=== PATIENT | male | born 1955 | race Caucasian/White ===

== ENCOUNTER 2020-02-25 10:04 | Emergency (ER) | payer MEDICARE, OTHER ==
--- NOTE | 2020-02-25 10:54 | EDM.PDOC ---
ED HPI GENERAL MEDICAL PROBLEM - General Chief Complaint: Genitourinary Problem Stated Complaint: ABD PAIN, ? BADDER INFECTION Time Seen by Provider: 02/25/20 10:39 Source of Information: Reports: Patient History Limitations: Reports: No Limitations - History of Present Illness INITIAL COMMENTS - FREE TEXT/NARRATIVE: Patient presents with dysuria that started 36 hours ago. He denies flank pain and has never had a UTI before but thinks he must have one now. He hasn't been drinking much water the last few days he says. - Related Data Allergies Allergy/AdvReac Type Severity Reaction Status Date / Time No Known Drug Allergies Allergy Other Verified 02/25/20 10:18 Home Meds: Home Meds . [No Known Home Meds] 06/22/19 [History] Past Medical History - Past Health History Medical/Surgical History: Denies Medical/Surgical History HEENT History: Reports: Impaired Vision - Infectious Disease History Infectious Disease History: Reports: Other (See Below) Other Infectious Disease History: Lyme disease Social & Family History - Family History Family Medical History: Noncontributory - Tobacco Use Smoking Status *Q: Never Smoker - Caffeine Use Caffeine Use: Reports: None - Recreational Drug Use Recreational Drug Use: No ED ROS GENERAL - Review of Systems Review Of Systems: See Below Constitutional: Denies: Fever, Chills, Malaise, Weakness HEENT: Reports: No Symptoms Respiratory: Denies: Shortness of Breath, Cough Cardiovascular: Denies: Chest Pain, Syncope Endocrine: Reports: No Symptoms GI/Abdominal: Denies: Abdominal Pain, Diarrhea, Vomiting : Reports: Dysuria, Frequency, Urgency, Other (No penile lesions or erythema) . Denies: Flank Pain, Hematuria, Incontinence Musculoskeletal: Reports: No Symptoms Skin: Denies: Cyanosis, Jaundice, Mottled, Pallor, Diaphoresis Neurological: Denies: Confusion, Dizziness, Seizure, Syncope, Trouble Speaking, Difficulty Walking Psychiatric: Denies: Agitation, Anxiety, Confusion ED EXAM, RENAL/ - Physical Exam Exam: See Below Exam Limited By: No Limitations General Appearance: Alert, WD/WN, No Apparent Distress Eye Exam: Bilateral Eye: EOMI, Normal Inspection, PERRL Ears: Normal External Exam, Hearing Grossly Normal Nose: Normal Inspection, No Blood Throat/Mouth: Normal Inspection, Normal Lips, Normal Voice, No Airway Compromise Head: Atraumatic, Normocephalic Neck: Normal Inspection, Full Range of Motion Respiratory/Chest: No Respiratory Distress, Lungs Clear, Normal Breath Sounds, No Accessory Muscle Use Cardiovascular: Regular Rate, Rhythm, No Murmur GI/Abdominal: Normal Bowel Sounds, Soft, Non-Tender, No Organomegaly, No Distention, No Abnormal Bruit Back Exam: Normal Inspection, Full Range of Motion. No: CVA Tenderness (L), CVA Tenderness (R) Extremities: Normal Inspection, Normal Range of Motion Neurological: Alert, Oriented, Normal Cognition, No Motor/Sensory Deficits Psychiatric: Normal Affect, Normal Mood Skin Exam: Warm, Dry, Intact, Normal Color, No Rash Course - Vital Signs Last Recorded V/S: Last Vital Signs Temp 97.6 F 02/25/20 10:04 Pulse 74 02/25/20 10:04 Resp 16 02/25/20 10:04 BP 124/76 02/25/20 10:04 Pulse Ox 97 02/25/20 10:04 - Orders/Labs/Meds Orders: Active Orders 24 hr Category Date Time Status CULTURE URINE [RM] Stat Lab 02/25/20 10:15 Received Labs: Laboratory Tests 02/25/20 Range/Units 10:15 Specimen Type Urinvoid Urine Color Yellow (YELLOW) Urine Appearance Slightly cloudy H (CLEAR) Urine pH 6.5 (5.0-9.0) Ur Specific [place] 1.015 (1.005-1.030) Urine Protein 30 H (NEGATIVE) mg/dL Urine Glucose (UA) Negative (NEGATIVE) mg/dL Urine Ketones 15 H (NEGATIVE) mg/dL Urine Occult Blood Trace-lysed H (NEGATIVE) Urine Nitrite Positive H (NEGATIVE) Urine Bilirubin Negative (NEGATIVE) Urine Urobilinogen 0.2 (0.2-1.0) E.U./dL Ur Leukocyte Esterase Small H (NEGATIVE) Urine RBC 5-10 H (0-5) /HPF Urine WBC >100 H (0-5) /HPF Ur Epithelial Cells Moderate H /LPF Urine Bacteria Many H (NONE TO FEW) /HPF - Re-Assessments/Exams Free Text/Narrative Re-Assessment/Exam: 02/25/20 10:54 UA shows strong evidence of a UTI and culture will be done. Will treat with Macrobid and patient will follow up with PCP. Discussed findings and treatment plan with patient and he is discharged to home in stable condition. Departure - Departure Time of Disposition: 10:49 Disposition: Home, Self-Care 01 Condition: Good Clinical Impression: Acute cystitis Qualifiers: Hematuria presence: without hematuria Qualified Code(s): N30.00 - Acute cystitis without hematuria - Discharge Information Instructions: Urinary Tract Infection, Adult, [id number] Referrals: Cinthia Penaloza MD [Primary Care Provider] - Forms: ED Department Discharge Additional Instructions: Drink 8 cups of water daily. Take the antibiotic twice daily as directed. Follow up for recheck in 7-10 days with your PCP or sooner if worsening. Sepsis Event Note - Evaluation Sepsis Screening Result: No Definite Risk - Focused Exam Vital Signs: Vital Signs Temp Pulse Resp BP Pulse Ox 02/25/20 10:04 97.6 F 74 16 124/76 97 Date Exam was Performed: 02/25/20 Time Exam was Performed: 10:57 - My Orders Last 24 Hours: My Active Orders 02/25/20 10:15 CULTURE URINE [RM] Stat - Assessment/Plan Last 24 Hours: My Active Orders 02/25/20 10:15 CULTURE URINE [RM] Stat
== END 2020-02-25 10:57 | disposition home or self-care (01) ==
LOC: KA.ED 10:04
DX: N30.00 Acute cystitis without hematuria (principal)
CPT/HCPCS: 81001; 87086; 87088; 99283

== ENCOUNTER 2020-02-25 21:59 | Emergency (ER) | payer MEDICARE, OTHER ==
[2020-02-25] MEDS ORDERED: Phenazopyridine 100 MG Tab PO ONE (22:20)
[2020-02-25 23:00] LABS: ANION GAP 16.8 mmol/L (5-15); CHLORIDE,CL 98 mmol/L (98-115); SODIUM,NA 134 mmol/L (136-145)
--- NOTE | 2020-02-25 23:41 | EDM.PDOC ---
ED HPI GENERAL MEDICAL PROBLEM - General Chief Complaint: Genitourinary Problem Stated Complaint: urinary retention, current UTI Time Seen by Provider: 02/25/20 22:43 Source of Information: Reports: Patient History Limitations: Reports: No Limitations - History of Present Illness INITIAL COMMENTS - FREE TEXT/NARRATIVE: Patient presents/returns with worsening discomfort that is now primarily perineal and not just dysuria with urination (he had been in ER earlier today and treated for acute cystitis). He tells me that he is but has not been sexually active the last 5 years due to chronic Lyme disease and decreased energy and overall health. - Related Data Allergies Allergy/AdvReac Type Severity Reaction Status Date / Time No Known Drug Allergies Allergy Other Verified 02/25/20 22:01 Home Meds: Home Meds . [No Known Home Meds] 06/22/19 [History] Past Medical History - Past Health History Medical/Surgical History: Denies Medical/Surgical History HEENT History: Reports: Impaired Vision Genitourinary History: Reports: Other (See Below) Other Genitourinary History: current UTI - Infectious Disease History Infectious Disease History: Reports: Other (See Below) Other Infectious Disease History: Lyme disease Social & Family History - Family History Family Medical History: Noncontributory - Tobacco Use Smoking Status *Q: Never Smoker Second Hand Smoke Exposure: No - Caffeine Use Caffeine Use: Reports: None - Recreational Drug Use Recreational Drug Use: No ED ROS GENERAL - Review of Systems Review Of Systems: See Below Constitutional: Denies: Fever, Chills, Malaise, Weakness HEENT: Reports: No Symptoms Respiratory: Reports: No Symptoms Cardiovascular: Reports: No Symptoms Endocrine: Reports: No Symptoms GI/Abdominal: Denies: Abdominal Pain, Diarrhea, Vomiting : Reports: Pain (at the base of the penis and behind it) Musculoskeletal: Reports: No Symptoms Skin: Reports: No Symptoms Neurological: Reports: No Symptoms Psychiatric: Reports: No Symptoms ED EXAM, RENAL/ - Physical Exam Exam: See Below Exam Limited By: No Limitations General Appearance: Alert, WD/WN, No Apparent Distress Eye Exam: Bilateral Eye: EOMI, Normal Inspection, PERRL Ears: Normal External Exam, Hearing Grossly Normal Nose: Normal Inspection, No Blood Throat/Mouth: Normal Inspection, Normal Lips, Normal Voice, No Airway Compromise Head: Atraumatic, Normocephalic Neck: Normal Inspection, Full Range of Motion Respiratory/Chest: No Respiratory Distress, Lungs Clear, Normal Breath Sounds Cardiovascular: Regular Rate, Rhythm, No Murmur GI/Abdominal: Normal Bowel Sounds, Soft, Non-Tender, No Organomegaly, No Distention (Male) Exam: Circumcised. No: Penile Lesions, Rash, Scrotal Swelling, Scrotum Tenderness (L), Scrotum Tenderness (R), Suprapubic Fullness, Testicular Mass, Testicular Tenderness (L), Testicular Tenderness (R), Urethral Discharge Rectal (Males) Exam: Normal Rectal Tone, Tenderness (mild with prostate palpation). No: Fecal Impaction, Perirectal Abscess, Prostate Nodule, Rectal Fissure Extremities: Normal Inspection, Normal Range of Motion Neurological: Alert, Oriented, Normal Cognition, No Motor/Sensory Deficits Psychiatric: Normal Affect, Normal Mood Skin Exam: Warm, Dry, Intact, Normal Color, No Rash Course - Vital Signs Last Recorded V/S: Last Vital Signs Temp 98 F 02/25/20 22:16 Pulse 87 02/25/20 22:16 Resp 22 H 02/25/20 22:16 BP 164/84 H 02/25/20 22:16 Pulse Ox 97 02/25/20 22:16 - Orders/Labs/Meds Labs: Laboratory Tests 02/25/20 02/25/20 Range/Units 22:35 22:35 WBC 16.02 H D (5.00-10.00) 10^3/uL RBC 4.49 L (4.50-6.00) 10^6/uL Hgb 15.3 (13.0-17.0) g/dL Hct 45.7 (40.0-52.0) % MCV 101.8 H (82.0-92.0) fL MCH 34.1 H (27.0-31.0) pg MCHC 33.5 (32.0-36.0) g/dL RDW 12.2 (11.5-14.5) % Plt Count 135 L (150-400) 10^3/uL MPV 12.3 H (7.4-10.4) fL Immature Gran % (Auto) 0.3 (0.0-5.0) % Neut % (Auto) 84.2 H (50.0-70.0) % Lymph % (Auto) 4.6 L (20.0-40.0) % [place] % (Auto) 10.7 H (2.0-8.0) % Eos % (Auto) 0.0 L (1.0-3.0) % Baso % (Auto) 0.2 (0.0-1.0) % Neut # (Auto) 13.48 H (2.50-7.00) 10^3/uL Lymph # (Auto) 0.73 L (1.00-4.00) 10^3/uL [place] # (Auto) 1.72 H (0.10-0.80) 10^3/uL Eos # (Auto) 0.00 L (0.10-0.30) 10^3/uL Baso # (Auto) 0.04 (0.00-0.10) 10^3/uL Immature Gran # (Auto) 0.05 (0.00-0.50) 10^3/uL Sodium 134 L (136-145) mmol/L Potassium 3.9 (3.3-5.3) mmol/L Chloride 98 (98-115) mmol/L Carbon Dioxide 23.1 (21.0-32.0) mmol/L Anion Gap 16.8 H (5-15) mmol/L BUN 15 (6-25) mg/dL Creatinine 0.84 (0.51-1.17) mg/dL Est Cr Clr Drug Dosing 88.80 mL/min Estimated GFR (MDRD) > 60 mL/min Glucose 151 H (75 - 99) mg/dL Calcium 8.8 (8.7-10.3) mg/dL Meds: Medications Discontinued Medications Generic Name Dose Route Start Last Admin Trade Name Freq PRN Reason Stop Dose Admin Levofloxacin 1,000 mg 02/25/20 23:43 02/26/20 00:03 Levaquin PO 02/25/20 23:44 500 mg ONETIME ONE Administration Phenazopyridine HCl 100 mg 02/25/20 22:20 02/25/20 22:25 Pyridium PO 02/25/20 22:21 100 mg ONETIME ONE Administration - Re-Assessments/Exams Free Text/Narrative Re-Assessment/Exam: 02/26/20 03:21 WBC is 16. Discussed findings and treatment plan with patient. Feel this is most likely acute prostatitis. Discharged to home in stable condition. Departure - Departure Time of Disposition: 23:44 Disposition: Home, Self-Care 01 Condition: Good Clinical Impression: Acute prostatitis without hematuria - Discharge Information Instructions: Prostatitis, [id number] Referrals: Cinthia Penaloza MD [Primary Care Provider] - Forms: ED Department Discharge Additional Instructions: Take the Levaquin daily as directed. You will need to take this for at least a month and likely up to 6 weeks. Recheck with your PCP in 10-14 days or sooner if worsening. Sepsis Event Note - Evaluation Sepsis Screening Result: No Definite Risk - Focused Exam Vital Signs: Vital Signs Temp Pulse Resp BP Pulse Ox 02/25/20 22:16 98 F 87 22 H 164/84 H 97 Date Exam was Performed: 02/26/20 Time Exam was Performed: 03:21
[2020-02-25] MEDS ORDERED: Levofloxacin 500 MG Tab PO ONE (23:43)
== END 2020-02-26 00:10 | disposition home or self-care (01) ==
LOC: KA.ED 21:59
DX: N41.0 Acute prostatitis (principal); N30.00 Acute cystitis without hematuria
CPT/HCPCS: 36415; 51798; 80048; 81001; 85025; 87086; 87088; 99283; A9270-GY

== ENCOUNTER 2023-05-07 13:24 | Emergency (ER) | payer MEDICARE, OTHER ==
[2023-05-07 13:47] LABS: APPEARANCE,URINE CLEAR (CLEAR); BILIRUBIN,URINE NEGATIVE (NEGATIVE); COLOR,URINE YELLOW (YELLOW); GLUCOSE,URINE NEGATIVE (NEGATIVE); KETONES,URINE NEGATIVE (NEGATIVE); LEUKOCYTE ESTERASE,URINE NEGATIVE (NEGATIVE); NITRITE,URINE NEGATIVE (NEGATIVE); OCCULT BLOOD,URINE NEGATIVE (NEGATIVE); PROTEIN,URINE NEGATIVE (NEGATIVE); UROBILINOGEN,URINE 0.2 E.U./dL (0.2-1.0)
[2023-05-07 13:50] LABS: BASOPHILS ABSOLUTE AUTO 0.05 10^3/uL (0.00-0.10); BASOPHILS PERCENT AUTO 0.7 % (0.0-1.0); EOSINOPHILS ABSOLUTE AUTO 0.13 10^3/uL (0.10-0.30); EOSINOPHILS PERCENT AUTO 1.7 % (1.0-3.0); HEMATOCRIT 43.7 % (40.0-52.0); HEMOGLOBIN 14.4 g/dL (13.0-17.0); LYMPHOCYTES ABSOLUTE AUTO 1.17 10^3/uL (1.00-4.00); LYMPHOCYTES PERCENT AUTO 15.3 % (20.0-40.0); MEAN CORPUSCULAR HEMOGLOBIN 33.6 pg (27.0-31.0); MEAN CORPUSCULAR VOLUME 102.1 fL (82.0-92.0); MEAN PLATELET VOLUME 12.5 fL (7.4-10.4); MONOCYTES ABSOLUTE AUTO 0.79 10^3/uL (0.10-0.80); MONOCYTES PERCENT AUTO 10.3 % (2.0-8.0); NEUTROPHILS ABSOLUTE AUTO 5.51 10^3/uL (2.50-7.00); PLATELET COUNT,PLT 160 10^3/uL (150-400); RED BLOOD CELL COUNT 4.28 10^6/uL (4.50-6.00); RED CELL DISTRIBUTION WIDTH 12.2 % (11.5-14.5); WHITE BLOOD CELL COUNT,WBC 7.65 10^3/uL (5.00-10.00)
[2023-05-07 14:08] LABS: ALANINE AMINOTRANSFERASE,ALT 24 U/L (14-63); ALKALINE PHOSPHATASE 68 U/L (46-116); ANION GAP 11.9 mmol/L (5-15); ASPARTATE AMNIOTRANSFERASE,AST 17 U/L (15-37); BILIRUBIN TOTAL 0.3 mg/dL (0.2-1.0); BLOOD UREA NITROGEN,BUN 19 mg/dL (7-18); CALCIUM 8.7 mg/dL (8.7-10.3); CHLORIDE,CL 104 mmol/L (98-107); CREATININE 0.82 mg/dL (0.51-1.17); ESTIMATED GFR 95 mL/min (>=60); GLUCOSE RANDOM 107 mg/dL (70-140); LIPASE 85 U/L (73-393); POTASSIUM,K 4.9 mmol/L (3.5-5.1); PROTEIN TOTAL,TP 7.1 g/dL (6.4-8.2); SODIUM,NA 139 mmol/L (136-145)
== END 2023-05-07 14:48 | disposition home or self-care (01) ==
LOC: KA.ED 13:24
DX: R53.1 Weakness (principal); R00.1 Bradycardia, unspecified; E78.00 Pure hypercholesterolemia, unspecified; Z86.19 Personal history of other infectious and parasitic diseases
CPT/HCPCS: 36415; 80053; 81003; 83690; 84484; 85025; 93005; 93010; 99283; 99284

== ENCOUNTER 2024-06-24 10:50 | Emergency (ER) | payer MEDICARE, OTHER ==
[2024-06-24 11:14] LABS: HEMATOCRIT 48.5 % (40.0-52.0); HEMOGLOBIN 16.2 g/dL (13.0-17.0); MEAN CORPUSCULAR HEMOGLOBIN 33.7 pg (27.0-31.0); MEAN CORPUSCULAR HGB CONC 33.4 g/dL (32.0-36.0); MEAN CORPUSCULAR VOLUME 100.8 fL (82.0-92.0); MEAN PLATELET VOLUME 12.3 fL (7.4-10.4); PLATELET COUNT,PLT 128 10^3/uL (150-400); RED BLOOD CELL COUNT 4.81 10^6/uL (4.50-6.00); RED CELL DISTRIBUTION WIDTH 12.2 % (11.5-14.5); WHITE BLOOD CELL COUNT,WBC 3.97 10^3/uL (5.00-10.00)
[2024-06-24 11:24] LABS: ALBUMIN 3.11 g/dL (3.40-5.00); ANION GAP 14.1 mmol/L (5-15); BILIRUBIN TOTAL 0.2 mg/dL (0.2-1.0); CALCIUM 8.7 mg/dL (8.7-10.3); CARBON DIOXIDE,CO2 28.5 mmol/L (21.0-32.0); CREATININE 0.81 mg/dL (0.51-1.17); EST CRCL DRUG DOSING (CG) 84.39 mL/min; POTASSIUM,K 4.6 mmol/L (3.5-5.1); PROTEIN TOTAL,TP 7.1 g/dL (6.4-8.2)
[2024-06-24] MEDS ORDERED: Sodium Chloride 0.9% 10 ML Syringe FLUSH PRN (11:31)
[2024-06-24 11:34] LABS: LYMPHOCYTES ABSOLUTE MAN 0.8734; LYMPHOCYTES PERCENT MAN 22 % (20-40); MONOCYTES ABSOLUTE MAN 0.4764; MONOCYTES PERCENT MAN 12 % (2-8); NEUTROPHILS ABSOLUTE MAN 2.6202; SEG NEUTROPHILS PERCENT MAN 66 % (50-70)
[2024-06-24 11:46] LABS: INFLUENZA A NAA NEGATIVE (NEGATIVE); INFLUENZA B NAA NEGATIVE (NEGATIVE); RESPIRATORY SYNCYTIAL VIR NAA NEGATIVE (NEGATIVE)
[2024-06-24 11:47] LABS: CORONAVIRUS COVID-19 NAA POSITIVE (NEGATIVE)
== END 2024-06-24 12:27 | disposition home or self-care (01) ==
LOC: KA.ED 10:50
DX: U07.1 COVID-19 (principal); Z79.899 Other long term (current) drug therapy
CPT/HCPCS: 0241U; 36415; 71045; 80053; 85025; 87651-QW; 99284; 99285

== ENCOUNTER 2025-06-13 11:42 | Emergency (ER) | payer MEDICARE, OTHER ==
[2025-06-13] MEDS: Ketorolac 30 MG/ML SDV IM ONE (12:13)
[2025-06-13] MEDS ORDERED: Naloxone 0.4 MG/ML SDV IVPUSH PRN (15:51)
[2025-06-13] MEDS: methylPREDNISolone Sodium Succinate 40 MG/1 ML SDV IM ONE (16:04)
[2025-06-13] MEDS: Methocarbamol 1,000 MG/10 ML SDV IM ONE (16:04)
== END 2025-06-13 16:23 | disposition home or self-care (01) ==
LOC: KA.ED 11:44
DX: M54.89 Other dorsalgia (principal); M62.830 Muscle spasm of back; Z79.899 Other long term (current) drug therapy
CPT/HCPCS: 96372; 99283-25; 99284; A9270-GY; J1171; J1885; J2800; J2919